=== PATIENT | female | born 1990 | race Hispanic/Latino ===

== ENCOUNTER 2018-10-09 16:43 | Day surgery (SDC) | payer OTHER ==
[2018-10-09 17:13] VITALS: BP 106/66; TEMP 98.1; BMI 28.7
[2018-10-09 18:26] LABS: Fetal Fibronectin Negative (Negative)
[2018-10-09 18:27] LABS: FFN Internal QC Analyzer PASS (PASS); FFN Internal QC Cassette PASS (PASS)
--- NOTE | 2018-10-09 18:58 | ER ---
DATE OF SERVICE: 10/09/2018 TIME OF SERVICE: 1800 hours. PRESENTING COMPLAINT: Pelvic pressure. HISTORY OF PRESENT ILLNESS: Ms. Castillo is a 29- to 30-week, G2, P1, who sees Dr. Shaffer at [facility]. She reports that she is having pelvic pressure similar to what she felt at 36 weeks right before her rupture of water. In her first , she denies contractions. She denies leakage of fluid. Of note, the patient is on [place]. [employer] HISTORY: As noted. Antepartum record not available on the unit. PAST MEDICAL HISTORY: None. PAST SURGICAL HISTORY: None. ALLERGIES: DENIES. MEDICATIONS: 1. vitamins. 2. [place] weekly. SOCIAL HISTORY: Denies tobacco, alcohol, or drug use. FAMILY HISTORY: Noncontributory. REVIEW OF SYSTEMS: Noncontributory. PHYSICAL EXAMINATION: GENERAL: female, resting comfortably. VITAL SIGNS: Blood pressure 118/72, pulse 85, and temperature 98.4. HEENT: Within normal limits LUNGS: Clear to auscultation bilaterally. ABDOMEN: Soft, nontender without palpable contractions. Fundal height 30 cm. FHTs 130s. PELVIS: Vulva without lesions. Vagina without discharge. Cervix closed, long, and high, posterior. EXTREMITIES: No clubbing, cyanosis, or edema. LABORATORY DATA: fibronectin was performed, which was negative. monitoring was carried out for greater than 30 minutes, which revealed no contractions. Positive accelerations, no decelerations. No evidence of labor. IMPRESSION: Discomforts of at 29 to 30 weeks' gestation. No evidence of labor. PLAN: Reassurance. Discharge home. Keep scheduled followup with Dr. Shaffer at [facility]. Job ID: [id number]
== END 2018-10-09 18:50 | disposition home or self-care (01) ==
LOC: L&D/OP 16:43
PROVIDERS: ATTEND Obstetrics & Gynecology
DX: O26.893 Other specified pregnancy related conditions, third trimester (principal); R10.2 Pelvic and perineal pain; Z3A.36 36 weeks gestation of pregnancy
CPT/HCPCS: 82731; 90471; 90686; 99283; G0008

== ENCOUNTER 2018-12-19 13:33 | Day surgery (SDC) | payer OTHER ==
[2018-12-19 14:10] VITALS: BMI 31.4
[2018-12-19] MEDS ORDERED: Calcium Gluc 4.6 MEQ/10 ML (100 MG/ML) SLOW IVP PRN (14:33)
[2018-12-19] MEDS ORDERED: Magnesium Sulfate 20 GM/WATER 500 ML BAG IVPB SCH (14:45)
--- NOTE | 2018-12-19 15:41 | PRG ---
DATE OF SERVICE: 12/19/2018 PRIMARY OB: Dr. Chacho Shaffer. CHIEF COMPLAINT: Abdominal pains. HISTORY OF PRESENT ILLNESS: The patient is a 28-year-old, G2, P1, female with an intrauterine at 38 weeks, who left work this morning, not feeling well. She reports some dizziness and abdominal pains that she was feeling about every 4 to 5 minutes. These abdominal pains are contractions, since dissipated to being much less frequent and not as intense. The patient denies any leaking fluid or vaginal bleeding. She denies any chest pain, shortness of breath, nausea, or vomiting. The patient had some diarrhea last few days. Denies constipation. Denies skin rashes, hip problems, knee problems, or muscle weakness. Denies any recent falls or illness. Denies vaginal bleeding or change in discharge. She does report she had some burning when she peed, once a little bit, and since has not had recurrent symptoms. PAST MEDICAL HISTORY: Negative. PAST SURGICAL HISTORY: Negative. ALLERGIES: NO KNOWN DRUG ALLERGIES. MEDICATIONS: vitamins. SOCIAL HISTORY: Denies drug, alcohol, or tobacco use. OB LABORATORY DATA: Blood type is O positive. Antibody screen is negative. Hepatitis B surface antigen is nonreactive. HIV is nonreactive. She is rubella immune, and VDRL is nonreactive in the third trimester. GBS is not available at this time. REVIEW OF SYSTEMS: Per HPI. PHYSICAL EXAMINATION: VITAL SIGNS: Blood pressure 123/83, heart rate of 75, respiratory rate 18, saturating 98% on room air, and temperature 98.3. GENERAL: She appears to be in no acute distress. She is alert, oriented, cooperative, and pleasant to interact with. HEAD: Normocephalic and atraumatic. LUNGS: Clear to auscultation bilaterally. HEART: Has regular rate and rhythm. ABDOMEN: Gravid, soft, and nontender. EXTREMITIES: Nontender and nonedematous. She has some mild SI joint tenderness to palpation. No vertebral tenderness. No CVA tenderness. CERVICAL: Her cervical exam per nursing staff is 1, 50, and -2 station. heart tracing performed for abdominal pain and . Baseline is noted to be in the 120s with moderate long-term variability, positive 15 x 15 accelerations, no decelerations. The tocometer showing just a couple of isolated contractions over a 40-minute period. ASSESSMENT AND PLAN: The patient is a 28-year-old, G2, P1, female with an intrauterine at 38 weeks, having contractions, but no evidence of labor. The patient is being discharged to home with a reactive NST and category 1 tracing. She has an appointment tomorrow to see Dr. Shaffer's partner, Dr. Cruz, as Dr. Shaffer is out of town. The patient has been given term labor precautions and being discharged home. Job ID: [id number]
== END 2018-12-19 15:15 | disposition home health service (06) ==
LOC: L&D/OP 13:33
PROVIDERS: ATTEND Obstetrics & Gynecology
DX: O47.1 False labor at or after 37 completed weeks of gestation (principal); O99.89 Other specified diseases and conditions complicating pregnancy, childbirth and the puerperium; R42 Dizziness and giddiness; Z3A.38 38 weeks gestation of pregnancy
CPT/HCPCS: 99282

== ENCOUNTER 2018-12-26 06:15 | Inpatient (IN) | payer OTHER ==
[2018-12-26 06:45] VITALS: BMI 31.7
[2018-12-26] MEDS ORDERED: Lidocaine 1% (PF) 30 ML VIAL SC PRN (07:32)
[2018-12-26] MEDS ORDERED: HYDROcodone/Acetaminophen 5/325 mg Tablet PO PRN ×4 (07:32→14:56)
[2018-12-26] MEDS ORDERED: Lactated Ringer's 1,000 ML IV SCH ×2 (07:32)
[2018-12-26] MEDS ORDERED: Butorphanol Tartrate 1 MG/ML VIAL SLOW IVP PRN (07:32)
[2018-12-26] MEDS ORDERED: Promethazine HCl 25 MG/ML VIAL IM PRN ×2 (07:32→10:52)
[2018-12-26] MEDS ORDERED: NS w/ Oxytocin 10 units 500 ML IV SCH (07:32)
[2018-12-26] MEDS ORDERED: Ibuprofen 800 MG TAB PO PRN (07:32)
[2018-12-26] MEDS ORDERED: Ondansetron PF 4 MG/2 ML Vial IVP PRN ×3 (07:32→14:56)
[2018-12-26] MEDS ORDERED: NS / Oxytocin 40 units/1000ml 1,000 ML IV PRN (07:32)
[2018-12-26 07:50] LABS: Hemoglobin 13.6 g/dL (12.0-16.0); Mean Corpuscular HGB CONC 35.2 g/dL (32.0-36.0); Mean Corpuscular Hemoglobin 30.5 pg (27.0-31.0); Mean Corpuscular Volume 86.7 fL (78.0-98.0); Mean Platelet Volume 8.6 fL (7.4-10.4); Platelet Count 171 thou/uL (130-400); RBC Distribution Width 13.3 % (11.5-14.5); Red Blood Cell (RBC) Count 4.45 mill/uL (4.20-5.40); White Blood Cell (WBC) Count 8.7 thou/uL (4.8-10.8)
[2018-12-26 08:26] LABS: HBSAg Index 0.35 S/CO (0-0.99); Hep B Surf Ag Non-Reactive S/CO (NonReactive)
[2018-12-26 08:26] LABS: Syphilis Antibody Nonreactive (Nonreactive); Syphilis Antibody Index 0.02 S/CO (<1.00 Non-Reactive)
--- NOTE | 2018-12-26 10:14 | PDOC.LDPN ---
Labor & Delivery Progress Note - Subjective Subjective: comfortable, no concerns - Objective Vital signs reviewed and normal: yes General: resting Dilation: 4 Effacement: 50% Station: -2 FHT: category 1 AROM: clear fluid - Assessment (1) 39 weeks gestation of Code(s): Z3A.39 - 39 WEEKS GESTATION OF Current Visit: Yes Status : Acute Plan: continue plan of care -: A/P: SP AROM at this exam. DIscussed pitocin at next exam if unchanged. Pt declines blood products, risk factors for PPH reviewed.
[2018-12-26] MEDS ORDERED: Fentanyl 4 mcg/Bup 0.1% Cadd 100 ML ONE (10:30)
[2018-12-26] MEDS ORDERED: Acetaminophen 325 MG TAB PO PRN (10:52)
[2018-12-26] MEDS ORDERED: Lactated Ringer's 500 ML IV PRN (10:52)
[2018-12-26] MEDS ORDERED: Naloxone HCl 0.4 mg/ml Vial IVP PRN ×2 (10:52)
[2018-12-26] MEDS ORDERED: ePHEDrine/0.9% NaCl/PF SYRINGE 50 mg/10 ml SLOW IVP PRN (10:52)
[2018-12-26] MEDS ORDERED: diphenhydrAMINE 50 MG/ML VIAL IVP PRN (10:52)
[2018-12-26] MEDS ORDERED: Communication Order-Pharmacy FS SCH (11:00)
[2018-12-26] MEDS ORDERED: Fentanyl 4 mcg/Bupivacaine 0.1% Cassette 100 ML EPIDURAL SCH (11:00)
[2018-12-26] MEDS ORDERED: NS w/ Oxytocin 10 units 500 ML ONE (11:04)
--- NOTE | 2018-12-26 14:11 | PDOC.OPDEL ---
OB Operative/Delivery Note Delivery Dr/Surgeon: Edmund Procedure/Post Delivery Dx: spontaneous vaginal delivery Weeks gestation: 39 - Findings A Sex: male - 1 min: 8 - 5 min: 9 - Additional Findings/Plan Placenta delivered: spontaneous Estimated blood loss: 20ml Compilations/Other Findings: true knot in cord Post delivery plan: routine recovery
[2018-12-26] MEDS ORDERED: Bisacodyl 10 MG SUPP PR PRN (14:56)
[2018-12-26] MEDS ORDERED: Adacel (T-DAP) 0.5 ML SYRINGE IM ONE (14:56)
[2018-12-26] MEDS ORDERED: diphenhydrAMINE 25 MG CAP PO PRN (14:56)
[2018-12-26] MEDS ORDERED: Lanolin Ointment 7 GM TUBE TOP PRN (14:56)
[2018-12-26] MEDS ORDERED: Preparation H Ointment 28 GM TUBE PR PRN (14:56)
[2018-12-26] MEDS ORDERED: NS / Oxytocin 40 units/1000ml 1,000 ML IV SCH (14:56)
[2018-12-26] MEDS ORDERED: Benzocaine-Menthol 82.5 ML CAN TOP PRN (14:56)
[2018-12-26] MEDS ORDERED: Milk Of Magnesia 30 ML UDCUP PO PRN (14:56)
[2018-12-26] MEDS: Ferrous Sulfate 325 MG TAB PO SCH (18:05)
[2018-12-26] MEDS: Ibuprofen 800 MG TAB PO SCH (21:37)
[2018-12-26] MEDS: Docusate Calcium (SURFAK) 240 MG CAP PO SCH (21:37)
[2018-12-27] MEDS: Ibuprofen 800 MG TAB PO SCH ×2 (06:15→14:02)
[2018-12-27] MEDS: Docusate Calcium (SURFAK) 240 MG CAP PO SCH (08:15)
--- NOTE | 2018-12-27 08:16 | PDOC.PP ---
Post Progress Note Post Day #: 1 Subjective: No concerns. Minimal pain and lochia. Breast feeding. PO intake tolerated: yes Flatus: yes Ambulation: yes Vital Signs (12 hours) Temp Pulse Resp BP Pulse Ox 12/27/18 07:15 97.7 F 73 16 126/90 98 12/27/18 04:50 97.7 F 61 18 111/76 12/27/18 00:46 98.2 F 77 18 106/62 12/26/18 20:52 98.4 F 79 16 111/67 97 Weight Weight 168 lb - Physical Examination General: NAD Cardiovascular: RRR Respiratory: non-labored breathing Abdominal: no distention, appropriately TTP Fundus firm & at: below umbilicus Extremities: negative homans (B) Neurological: no gross focal deficits Psychiatric: A&Ox3, normal affect Result Diagrams: 12/26/18 07:34 Additional Labs: Post Labs Hep Bs Antigen Non-Reactive S/CO (NonReactive) 12/26/18 07:35 (1) Vaginal delivery Code(s): O80 - ENCOUNTER FOR FULL-TERM UNCOMPLICATED DELIVERY Status: Acute - Assessment/Plan PPD1 VSSAF Meeting requirements for d/c. Plan for d/c 24 hr PP.
[2018-12-27] MEDS ORDERED: Loratadine 10 MG TAB PO SCH (09:00)
[2018-12-27 11:57] VITALS: BP 127/86; TEMP 98.1
[2018-12-27] MEDS: Ferrous Sulfate 325 MG TAB PO SCH (14:03)
== END 2018-12-27 17:14 | disposition home or self-care (01) | DRG 807 ==
LOC: L&D/OP 06:15 → L&D 14:23 → 3SW 18:05
PROVIDERS: ADMIT Obstetrics & Gynecology; ATTEND Obstetrics & Gynecology
PROC: 10907ZC Drainage of Amniotic Fluid, Therapeutic from Products of Conception, Via Natural or Artificial Opening (ICD-10-PCS; principal; 2018-12-26)
PROC: 10E0XZZ Delivery of Products of Conception, External Approach (ICD-10-PCS; 2018-12-26)
DX: O69.2XX0 Labor and delivery complicated by other cord entanglement, with compression, not applicable or unspecified (principal); Z37.0 Single live birth; Z3A.39 39 weeks gestation of pregnancy
CPT/HCPCS: 36415; 51702; 85027; 86780; 87340; 90715; 99285; J2590

== ENCOUNTER 2020-11-10 14:09 | Emergency (ER) | payer MEDICAID, OTHER, SELFPAY ==
[2020-11-10 15:10] LABS: #Eosinphils 0.1 thou/uL (0.0-0.7); #Monocytes 0.6 thou/uL (0.11-0.59); #Neutrophils 5.6 thou/uL (1.40-6.50); %Basophils 0.4 % (0.0-1.0); %Eosinophils 1.2 % (0.0-10.0); %Lymphocytes 23.7 % (21.0-51.0); %Monocytes 7.4 % (0.0-10.0); %Neutrophils 67.4 % (42.0-75.0); Hemoglobin 13.5 g/dL (12.0-16.0); Mean Corpuscular HGB CONC 34.2 g/dL (32.0-36.0); Mean Corpuscular Hemoglobin 30.5 pg (27.0-31.0); Mean Corpuscular Volume 89.2 fL (78.0-98.0); Mean Platelet Volume 7.1 fL (7.4-10.4); Platelet Count 339 thou/uL (130-400); RBC Distribution Width 11.3 % (11.5-14.5); Red Blood Cell (RBC) Count 4.42 mill/uL (4.20-5.40); White Blood Cell (WBC) Count 8.3 thou/uL (4.8-10.8)
[2020-11-10 15:35] LABS: ALT (SGPT) 16 U/L (8-55); AST (SGOT) 19 U/L (5-34); Alkaline Phosphatase 56 U/L (40-110); Anion Gap 14 mmol/L (10-20); BUN (Urea Nitrogen) 9 mg/dL (7.0-18.7); Bilirubin, Total 0.8 mg/dL (0.2-1.2); Calc. Creatinine Clearance 0 mL/min (70-130); Calcium 9.9 mg/dL (7.8-10.44); Carbon Dioxide 25 mmol/L (22-29); Chloride 104 mmol/L (98-107); Globulin 3.2 g/dL (2.4-3.5); Glucose 100 mg/dL (70-105); Protein, Total 8.2 g/dL (6.0-8.3); Sodium 139 mmol/L (136-145)
[2020-11-10 15:48] LABS: BHCG - Serum Negative (NEGATIVE); Pregs Control Background? CLEAR/WHITE (CLR/WHITE); Pregs Control Bar Appear? YES (CONTROL BAR)
[2020-11-10 16:05] LABS: CK (CPK) 115 U/L (29-168); Lipase 27 U/L (8-78)
== END 2020-11-10 16:18 | disposition home or self-care (01) ==
LOC: ERS 14:09
DX: R00.2 Palpitations (principal); Z79.899 Other long term (current) drug therapy
CPT/HCPCS: 36415; 71045; 80053; 82550; 83690; 84443; 84484; 84703; 85025; 85379; 93005; 94760